=== PATIENT | female | born 1970 | race Caucasian/White ===

== ENCOUNTER 2019-03-03 07:35 | Inpatient (IN) ==
[2019-03-03] MEDS ORDERED: Albuterol 2.5 MG/3 ML NEBULIZER IH STA (08:10)
[2019-03-03] MEDS ORDERED: Ringers Solution, Lactated 1,000 ML IVC SCH (08:15)
[2019-03-03] MEDS ORDERED: Gabapentin 300 MG CAPSULE PO ONE (08:28)
[2019-03-03] MEDS ORDERED: Scopolamine Patch 1.5 MG PATCH.TD72 TD ONE (08:28)
[2019-03-03] MEDS ORDERED: Acetaminophen IV 1,000 MG/100 ML INFUS..BTL IVPB ONE (08:28)
[2019-03-03] MEDS ORDERED: Celecoxib 200 MG CAPSULE PO ONE (08:28)
[2019-03-03] MEDS ORDERED: Morphine Sulfate 2 MG/ML SYRINGE IVP PRN (08:29)
[2019-03-03] MEDS ORDERED: *HR* OxyCODONE Immed Rel 5 MG TABLET PO PRN (08:29)
[2019-03-03] MEDS ORDERED: *HR* Succinylcholine 200 MG/10 ML VIAL IVP ONE ×2 (08:51→09:24)
[2019-03-03] MEDS ORDERED: Lidocaine -MPF 2% 2 ML VIAL ONE (08:51)
[2019-03-03] MEDS ORDERED: Lidocaine -MPF 4% 5 ML AMPUL ONE (08:51)
[2019-03-03] MEDS ORDERED: Dexamethasone 4 MG/ML VIAL ONE (08:51)
[2019-03-03] MEDS ORDERED: Ondansetron 4 MG/2 ML VIAL ONE (08:51)
[2019-03-03] MEDS ORDERED: *HR* Propofol 200 MG/20 ML VIAL IVP ONE (08:52)
[2019-03-03] MEDS ORDERED: *HR* Midazolam HCl 2 MG/2 ML VIAL ONE (08:52)
[2019-03-03] MEDS ORDERED: *HR* FentaNYL (PF) 100 MCG/2 ML VIAL ONE ×2 (08:52→14:03)
[2019-03-03] MEDS ORDERED: CeFAZolin Syr 3,000MG/30 ML 3,000 MG/30 ML SYRINGE IVPB ONE (09:01)
[2019-03-03] MEDS ORDERED: *HR* Rocuronium Bromide 50 MG/5 ML VIAL ONE ×2 (09:24→15:01)
[2019-03-03] MEDS ORDERED: Isovue-300 50ML VIAL ONE (09:27)
[2019-03-03] MEDS ORDERED: *HR* Midazolam HCl 5 MG/5 ML VIAL IVP ONE ×2 (10:32→11:50)
[2019-03-03 10:54] LABS: ABG Base Excess -11 mEq/L (-2 to 3); ABG Chloride 110 mEq/L (98-107); ABG Glucose 272 mg/dL (60-95); ABG HCO3 17 mEq/L (21-27); ABG Ionized Calcium 1.08 mmol/L (1.15-1.35); ABG Oxygen Saturation 96 % (95-98); ABG PCO2 47 mmHg (35-45); ABG PH 7.16 pH Units (7.32-7.45); ABG PO2 101 mmHg (85-104); ABG TCO2 18 mEq/L (20-26)
[2019-03-03] MEDS ORDERED: Heparin 1,000 UNITS/500 mL 500 ML ONE ×2 (11:27→15:08)
[2019-03-03 11:36] LABS: ABG Base Excess -7 mEq/L (-2 to 3); ABG Chloride 108 mEq/L (98-107); ABG Glucose 233 mg/dL (60-95); ABG HCO3 21 mEq/L (21-27); ABG Ionized Calcium 1.17 mmol/L (1.15-1.35); ABG Oxygen Saturation 99 % (95-98); ABG PCO2 51 mmHg (35-45); ABG PH 7.22 pH Units (7.32-7.45); ABG PO2 173 mmHg (85-104); ABG TCO2 23 mEq/L (20-26)
[2019-03-03] MEDS ORDERED: *HR* EPINEPHrine 1 MG/10 ML SYRINGE ONE (11:42)
[2019-03-03 12:55] LABS: ABG Base Excess -8 mEq/L (-2 to 3); ABG Chloride 109 mEq/L (98-107); ABG Glucose 257 mg/dL (60-95); ABG HCO3 21 mEq/L (21-27); ABG Ionized Calcium 1.37 mmol/L (1.15-1.35); ABG Oxygen Saturation 100 % (95-98); ABG PCO2 56 mmHg (35-45); ABG PH 7.17 pH Units (7.32-7.45); ABG PO2 210 mmHg (85-104); ABG TCO2 22 mEq/L (20-26)
[2019-03-03] MEDS ORDERED: *HR* PHENYLEPHRINE 1,000 MCG/10 ML SYRINGE IVP ONE (13:05)
[2019-03-03] MEDS ORDERED: 0.9 % Sodium Chloride 1,000 ML IVC SCH (13:15)
[2019-03-03] MEDS ORDERED: Artificial Tears SOLN 15 ML BOTTLE BOTH EYES PRN (13:36)
[2019-03-03] MEDS ORDERED: *HR* Norepinephrine 4 MG/4 ML VIAL IVC ONE (13:44)
[2019-03-03] MEDS ORDERED: 0.9 % Sodium Chloride 250 ML ONE (13:45)
[2019-03-03] MEDS ORDERED: *HR* Dextrose 50 % in Water (Syg) 50 ML SYRINGE IVP PRN (13:51)
[2019-03-03] MEDS ORDERED: D5% in Water 1,000 ML IVC PRN (13:51)
[2019-03-03] MEDS ORDERED: Dextrose Gel 15 GM/37.5 ML TUBE PO PRN ×2 (13:51)
[2019-03-03] MEDS ORDERED: *HR* FentaNYL (PF) 100 MCG/2 ML VIAL IVP ONE (14:21)
[2019-03-03 14:23] LABS: BUN/Creatinine Ratio 12 (6-26); Blood Urea Nitrogen 10 mg/dL (6-20); Calcium 8.4 mg/dL (8.6-10.3); Carbon Dioxide 22 mEq/L (23-29); Chloride 108 mEq/L (98-107); Glucose 283 mg/dL (70-105); Osmolality,Calculated 301 (280-300); Potassium 3.5 mEq/L (3.5-5.1); Sodium 141 mEq/L (136-145); eGFR For African Americans > 60 (> 60); eGFR For Non-African Americans > 60 (> 60)
[2019-03-03] MEDS ORDERED: Albumin Human 5% 25.0 GM/500 ML VIAL ONE (14:27)
[2019-03-03] MEDS ORDERED: Sodium Bicarbonate 50 MEQ/50 ML VIAL ONE ×2 (14:30→15:32)
[2019-03-03 14:32] LABS: ABG Base Excess -12 mEq/L (-2 to 3); ABG HCO3 17 mEq/L (21-27); ABG Oxygen Saturation 93 % (95-98); ABG PCO2 49 mmHg (35-45); ABG PH 7.15 pH Units (7.32-7.45); ABG PO2 86 mmHg (85-104); ABG TCO2 18 mEq/L (20-26); Blood Gas Modality ASSIST CONTROL; Blood Gas VT 450 cc
[2019-03-03] MEDS ORDERED: Sodium Bicarbonate 50 MEQ/50 ML VIAL IVP ONE ×2 (14:34→15:35)
[2019-03-03 14:43] LABS: INR 1.2; Prothrombin Time 13.3 Seconds (9.4-12.1)
[2019-03-03 14:52] LABS: Basophils # 0.1 K/mcL (0.0-0.2); Basophils % 0.3 %; Eosinophils % 0.1 %; Hematocrit 42.3 % (35.3-44.9); Immature Granulocytes % 1.9 % (0-4); Lymphocytes # 3.4 K/mcL (0.6-4.6); Lymphocytes % 10.6 %; Mean Corpuscular HGB Conc 33.1 g/dL (31.6-35.5); Mean Corpuscular Volume 87.8 fL (83.0-100.0); Mean Platelet Volume 10.4 fL (9.4-12.4); Monocytes # 1.5 K/mcL (0.0-1.3); Monocytes % 4.5 %; Neutrophils # 26.7 K/mcL (1.6-8.9); Platelet Count 300 K/mcL (140-400); Red Blood Count 4.82 M/mcL (3.82-4.97); Red Cell Distribution Width 15.1 % (11.5-14.5); Segmented Neutrophils % 82.6 %
[2019-03-03 14:55] LABS: White Blood Count 32.3 K/mcL (4.3-11.1)
[2019-03-03 15:02] LABS: Magnesium 1.7 mg/dL (1.6-2.6); Phosphorous 6.3 mg/dL (2.7-4.5)
[2019-03-03] MEDS ORDERED: Piperacillin/Tazobactam 3.375 GM in 0.9 % Sodium Chloride Mini Bag 100 ML IVPB SCH ×2 (15:04→18:00)
[2019-03-03 15:24] LABS: Estimated Average Glucose 134 mg/dl
[2019-03-03] MEDS: Vasopressin 40 UNIT in D5% in Water 100 ML IVC SCH (15:24)
[2019-03-03] MEDS: FentaNYL (PF) 1,000 MCG in 0.9 % Sodium Chloride 80 ML IVC SCH ×3 (15:55→23:33)
[2019-03-03 15:56] LABS: Hematocrit 34.7 % (35.3-44.9); Mean Corpuscular HGB Conc 34.3 g/dL (31.6-35.5); Mean Corpuscular Hemoglobin 29.3 pg (28.0-33.3); Mean Corpuscular Volume 85.5 fL (83.0-100.0); Mean Platelet Volume 10.2 fL (9.4-12.4); Platelet Count 242 K/mcL (140-400); Red Blood Count 4.06 M/mcL (3.82-4.97); Red Cell Distribution Width 14.9 % (11.5-14.5); White Blood Count 29.4 K/mcL (4.3-11.1)
[2019-03-03 15:57] LABS: Hemoglobin 11.9 g/dL (11.5-15.4)
[2019-03-03] MEDS: Norepinephrine 4 MG in 0.9 % Sodium Chloride 250 ML IVC SCH ×3 (15:58→22:11)
[2019-03-03 16:22] LABS: Lymphocytes # 0.6 K/mcL (0.6-4.6); Neutrophils # 28.8 K/mcL (1.6-8.9)
[2019-03-03 16:24] LABS: Platelet Estimate Normal (Normal)
[2019-03-03 16:36] LABS: ABG Base Excess -7 mEq/L (-2 to 3); ABG HCO3 20 mEq/L (21-27); ABG Oxygen Saturation 97 % (95-98); ABG PCO2 44 mmHg (35-45); ABG PH 7.27 pH Units (7.32-7.45); ABG PO2 108 mmHg (85-104); ABG TCO2 21 mEq/L (20-26); Blood Gas Modality ASSIST CONTROL; Blood Gas VT 480 cc
[2019-03-03] MEDS: Piperacillin/Tazobactam 3.375 GM in 0.9 % Sodium Chloride Mini Bag 100 ML IVPB SCH ×2 (17:43→23:31)
[2019-03-03] MEDS: Artificial Tears SOLN 15 ML BOTTLE BOTH EYES SCH ×3 (17:46→23:29)
[2019-03-03] MEDS: Insulin LISPRO 300 UNITS/3 ML VIAL SQ SCH ×3 (17:54→23:29)
[2019-03-03] MEDS ORDERED: ceFAZolin sodium 3,000 MG in 0.9 % Sodium Chloride 100 ML IVPB SCH (18:00)
[2019-03-03] MEDS ORDERED: *HR* Heparin 5,000 UNIT/ML VIAL SQ SCH (18:00)
[2019-03-03 18:25] LABS: ABG Base Excess -6 mEq/L (-2 to 3); ABG HCO3 20 mEq/L (21-27); ABG Oxygen Saturation 99 % (95-98); ABG PCO2 41 mmHg (35-45); ABG PO2 126 mmHg (85-104); ABG TCO2 21 mEq/L (20-26); Blood Gas Modality ASSIST CONTROL; Blood Gas VT 480 cc
[2019-03-03] MEDS ORDERED: Perflutren Lipid Microsphere 1.3 ML in 0.9 % Sodium Chloride 8.7 ML IVP ONE (21:18)
[2019-03-03] MEDS ORDERED: Perflutren Lipid Microsphere 2 ML VIAL ONE (21:20)
[2019-03-03 21:53] LABS: VBG Ionized Calcium 1.12 mmol/L (1.15-1.35)
[2019-03-03 21:56] LABS: Nucleated Red Blood Cells 0.1 /100 WBC (0)
[2019-03-03] MEDS: Chlorhexidine Rinse 15 ML MOUTHWASH MM SCH (21:56)
[2019-03-03 21:58] LABS: Hematocrit 34.5 % (35.3-44.9); Hemoglobin 11.8 g/dL (11.5-15.4); Mean Corpuscular HGB Conc 34.2 g/dL (31.6-35.5); Mean Corpuscular Volume 84.8 fL (83.0-100.0); Mean Platelet Volume 10.3 fL (9.4-12.4); Platelet Count 189 K/mcL (140-400); Red Blood Count 4.07 M/mcL (3.82-4.97); Red Cell Distribution Width 15.1 % (11.5-14.5)
[2019-03-03 22:11] LABS: Albumin 3.6 g/dL (3.5-5.7); Bilirubin,Direct 0.5 mg/dL (0.0-0.2); Bilirubin,Indirect 0.7 mg/dL (0.0-1.0); Bilirubin,Total 1.2 mg/dL (0.3-1.0); Calcium 8.5 mg/dL (8.6-10.3); Potassium 4.9 mEq/L (3.5-5.1)
[2019-03-03 22:33] LABS: Platelet Estimate Normal (Normal)
[2019-03-03 23:18] LABS: Globulin 1.8 g/dL (2.4-3.5); Total Protein 5.4 g/dL (6.4-8.9)
[2019-03-04 00:18] LABS: ABG Base Excess -3 mEq/L (-2 to 3); ABG HCO3 22 mEq/L (21-27); ABG Oxygen Saturation 97 % (95-98); ABG PCO2 38 mmHg (35-45); ABG PH 7.37 pH Units (7.32-7.45); ABG PO2 95 mmHg (85-104); ABG TCO2 23 mEq/L (20-26); Blood Gas Modality AF; Blood Gas VT 480 cc
[2019-03-04] MEDS ORDERED: 0.9 % Sodium Chloride 1,000 ML IVC ONE ×2 (01:30→04:34)
[2019-03-04 04:04] LABS: Basophils % 0.1 %; Hematocrit 33.2 % (35.3-44.9); Hemoglobin 11.2 g/dL (11.5-15.4); Immature Granulocytes % 0.8 % (0-4); Lymphocytes # 1.9 K/mcL (0.6-4.6); Lymphocytes % 10.4 %; Mean Corpuscular HGB Conc 33.7 g/dL (31.6-35.5); Mean Platelet Volume 10.8 fL (9.4-12.4); Monocytes # 1.6 K/mcL (0.0-1.3); Monocytes % 8.5 %; Platelet Count 166 K/mcL (140-400); Red Blood Count 3.86 M/mcL (3.82-4.97); Red Cell Distribution Width 15.6 % (11.5-14.5); Segmented Neutrophils % 80.2 %; White Blood Count 18.7 K/mcL (4.3-11.1)
[2019-03-04] MEDS: FentaNYL (PF) 1,000 MCG in 0.9 % Sodium Chloride 80 ML IVC SCH ×4 (04:07→23:07)
[2019-03-04 04:08] LABS: VBG Ionized Calcium 1.06 mmol/L (1.15-1.35)
[2019-03-04] MEDS: Norepinephrine 4 MG in 0.9 % Sodium Chloride 250 ML IVC SCH ×2 (04:08→14:48)
[2019-03-04 04:09] LABS: INR 1.2; Prothrombin Time 13.9 Seconds (9.4-12.1)
[2019-03-04] MEDS: Artificial Tears SOLN 15 ML BOTTLE BOTH EYES SCH ×5 (04:09→20:00)
[2019-03-04 04:22] LABS: Albumin 3.5 g/dL (3.5-5.7); Albumin/Globulin Ratio 1.8 (1.1-2.2); Bilirubin,Direct 0.3 mg/dL (0.0-0.2); Bilirubin,Indirect 0.6 mg/dL (0.0-1.0); Bilirubin,Total 0.9 mg/dL (0.3-1.0); Calcium 8.2 mg/dL (8.6-10.3); Globulin 1.9 g/dL (2.4-3.5); Potassium 5.2 mEq/L (3.5-5.1); Total Protein 5.4 g/dL (6.4-8.9)
[2019-03-04] MEDS ORDERED: Sodium Bicarbonate 50 MEQ/50 ML VIAL IVP ONE (04:35)
[2019-03-04] MEDS: Insulin LISPRO 300 UNITS/3 ML VIAL SQ SCH ×5 (04:49→20:00)
[2019-03-04 06:04] LABS: ABG Base Excess -3 mEq/L (-2 to 3); ABG HCO3 23 mEq/L (21-27); ABG Oxygen Saturation 95 % (95-98); ABG PCO2 44 mmHg (35-45); ABG PH 7.33 pH Units (7.32-7.45); ABG PO2 81 mmHg (85-104); ABG TCO2 24 mEq/L (20-26); Blood Gas Modality AF; Blood Gas VT 480 cc
[2019-03-04] MEDS: Chlorhexidine Rinse 15 ML MOUTHWASH MM SCH ×2 (07:11→20:00)
[2019-03-04] MEDS: Piperacillin/Tazobactam 3.375 GM in 0.9 % Sodium Chloride Mini Bag 100 ML IVPB SCH ×2 (07:12→15:11)
[2019-03-04] MEDS: Pantoprazole 40 MG VIAL IVP SCH (07:12)
[2019-03-04] MEDS: Calcium Gluconate 1gm/50mL 1 GM/50 ML BAG IVPB SCH ×2 (08:34→09:07)
[2019-03-04] MEDS: Dexmedetomidine HCl 400 MCG/100 ML MLS IVC SCH ×2 (08:45→23:09)
[2019-03-04] MEDS ORDERED: 0.9 % Sodium Chloride 500 ML ONE (08:57)
[2019-03-04 09:20] LABS: Basophils % 0.1 %; Hematocrit 31.1 % (35.3-44.9); Hemoglobin 10.7 g/dL (11.5-15.4); Immature Granulocytes % 0.6 % (0-4); Lymphocytes # 1.8 K/mcL (0.6-4.6); Lymphocytes % 10.8 %; Mean Corpuscular HGB Conc 34.4 g/dL (31.6-35.5); Mean Corpuscular Hemoglobin 29.5 pg (28.0-33.3); Mean Corpuscular Volume 85.7 fL (83.0-100.0); Mean Platelet Volume 11.1 fL (9.4-12.4); Monocytes # 1.6 K/mcL (0.0-1.3); Monocytes % 9.9 %; Neutrophils # 12.8 K/mcL (1.6-8.9); Nucleated Red Blood Cells 0.1 /100 WBC (0); Platelet Count 151 K/mcL (140-400); Red Blood Count 3.63 M/mcL (3.82-4.97); Red Cell Distribution Width 15.7 % (11.5-14.5); Segmented Neutrophils % 78.6 %; White Blood Count 16.3 K/mcL (4.3-11.1)
[2019-03-04 09:38] LABS: Albumin 3.6 g/dL (3.5-5.7); Albumin/Globulin Ratio 1.7 (1.1-2.2); Bilirubin,Direct 0.2 mg/dL (0.0-0.2); Bilirubin,Indirect 0.5 mg/dL (0.0-1.0); Bilirubin,Total 0.7 mg/dL (0.3-1.0); Calcium 8.4 mg/dL (8.6-10.3); Globulin 2.1 g/dL (2.4-3.5); Potassium 5.1 mEq/L (3.5-5.1); Total Protein 5.7 g/dL (6.4-8.9)
[2019-03-04] MEDS: Vasopressin 40 UNIT in D5% in Water 100 ML IVC SCH (11:49)
[2019-03-04 13:32] LABS: VBG Ionized Calcium 1.13 mmol/L (1.15-1.35)
[2019-03-04] MEDS: 0.9 % Sodium Chloride 1,000 ML IVC SCH ×2 (13:36→21:14)
[2019-03-04 13:45] LABS: Bilirubin,Urine Small (Negative); Blood,Urine Negative (Negative); Clarity,Urine Cloudy (Clear); Color,Urine Dark Yellow (Yellow); Glucose,Urine (UA) Normal (Normal); Ketones,Urine Trace mg/dL (Negative); Leukocyte Esterase,Urine Negative (Negative); Nitrite,Urine Negative (Negative); Protein,Urine 30 mg/dL (Neg-Trace); Specific Gravity,Urine > 1.030 (1.010-1.025); Urobilinogen,Urine Normal (Normal)
[2019-03-04 13:49] LABS: Bacteria,Urine None Seen per hpf (None-Few); Squamous Epithelial Cell,Urine Many per lpf (None-Few); WBC,Urine 15-30 per hpf (0-3)
[2019-03-04 13:57] LABS: Sodium, Urine 21.6 mEq/L
[2019-03-04 14:02] LABS: Uric Acid 7.5 mg/dL (2.3-7.6)
[2019-03-04 15:14] LABS: Basophils % 0.1 %; Hematocrit 29.3 % (35.3-44.9); Immature Granulocytes % 0.6 % (0-4); Lymphocytes # 1.7 K/mcL (0.6-4.6); Lymphocytes % 10.7 %; Mean Corpuscular HGB Conc 34.1 g/dL (31.6-35.5); Mean Corpuscular Hemoglobin 29.5 pg (28.0-33.3); Mean Corpuscular Volume 86.4 fL (83.0-100.0); Mean Platelet Volume 10.5 fL (9.4-12.4); Monocytes # 1.5 K/mcL (0.0-1.3); Monocytes % 9.7 %; Neutrophils # 12.6 K/mcL (1.6-8.9); Platelet Count 125 K/mcL (140-400); Red Blood Count 3.39 M/mcL (3.82-4.97); Red Cell Distribution Width 15.9 % (11.5-14.5); Segmented Neutrophils % 78.9 %; White Blood Count 15.9 K/mcL (4.3-11.1)
[2019-03-04 15:20] LABS: VBG Ionized Calcium 1.14 mmol/L (1.15-1.35)
[2019-03-04 15:32] LABS: Albumin 3.4 g/dL (3.5-5.7); Albumin/Globulin Ratio 1.6 (1.1-2.2); Bilirubin,Direct 0.1 mg/dL (0.0-0.2); Bilirubin,Indirect 0.5 mg/dL (0.0-1.0); Bilirubin,Total 0.6 mg/dL (0.3-1.0); Calcium 8.2 mg/dL (8.6-10.3); Globulin 2.1 g/dL (2.4-3.5); Potassium 4.8 mEq/L (3.5-5.1); Total Protein 5.5 g/dL (6.4-8.9)
[2019-03-04 17:51] LABS: ABG Base Excess 1 mEq/L (-2 to 3); ABG HCO3 27 mEq/L (21-27); ABG Oxygen Saturation 92 % (95-98); ABG PCO2 47 mmHg (35-45); ABG PH 7.37 pH Units (7.32-7.45); ABG PO2 66 mmHg (85-104); ABG TCO2 28 mEq/L (20-26); Blood Gas VT 480 cc
[2019-03-05] MEDS: Insulin LISPRO 300 UNITS/3 ML VIAL SQ SCH ×7 (00:39→23:29)
[2019-03-05] MEDS: Piperacillin/Tazobactam 3.375 GM in 0.9 % Sodium Chloride Mini Bag 100 ML IVPB SCH (00:40)
[2019-03-05] MEDS: Artificial Tears SOLN 15 ML BOTTLE BOTH EYES SCH ×4 (00:40→10:50)
[2019-03-05 03:34] LABS: Basophils % 0.1 %; Monocytes % 6.6 %
[2019-03-05 03:36] LABS: Hematocrit 26.3 % (35.3-44.9); Hemoglobin 8.9 g/dL (11.5-15.4); Immature Granulocytes % 0.8 % (0-4); Immature Platelets 6.4 % (1.1-6.1); Lymphocytes # 1.5 K/mcL (0.6-4.6); Lymphocytes % 10.8 %; Mean Corpuscular HGB Conc 33.8 g/dL (31.6-35.5); Mean Corpuscular Hemoglobin 29.8 pg (28.0-33.3); Mean Platelet Volume 10.9 fL (9.4-12.4); Monocytes # 0.9 K/mcL (0.0-1.3); Red Blood Count 2.99 M/mcL (3.82-4.97); Segmented Neutrophils % 81.7 %; White Blood Count 13.5 K/mcL (4.3-11.1)
[2019-03-05 03:39] LABS: INR 1.2; Platelet Count 96 K/mcL (140-400); Prothrombin Time 14.1 Seconds (9.4-12.1)
[2019-03-05 03:41] LABS: VBG Ionized Calcium 1.13 mmol/L (1.15-1.35)
[2019-03-05 03:54] LABS: Albumin 3.3 g/dL (3.5-5.7); Albumin/Globulin Ratio 1.5 (1.1-2.2); Bilirubin,Direct 0.1 mg/dL (0.0-0.2); Bilirubin,Indirect 0.4 mg/dL (0.0-1.0); Bilirubin,Total 0.5 mg/dL (0.3-1.0); Calcium 8.1 mg/dL (8.6-10.3); Globulin 2.2 g/dL (2.4-3.5); Potassium 4.5 mEq/L (3.5-5.1); Total Protein 5.5 g/dL (6.4-8.9)
[2019-03-05 04:36] LABS: ABG Base Excess 0 mEq/L (-2 to 3); ABG HCO3 26 mEq/L (21-27); ABG Oxygen Saturation 92 % (95-98); ABG PCO2 45 mmHg (35-45); ABG PH 7.37 pH Units (7.32-7.45); ABG PO2 65 mmHg (85-104); ABG TCO2 27 mEq/L (20-26); Blood Gas Modality AF; Blood Gas VT 480 cc
[2019-03-05] MEDS: 0.9 % Sodium Chloride 1,000 ML IVC SCH ×2 (05:08→12:09)
[2019-03-05] MEDS: Chlorhexidine Rinse 15 ML MOUTHWASH MM SCH ×2 (07:40→23:28)
[2019-03-05] MEDS: Pantoprazole 40 MG VIAL IVP SCH (07:40)
[2019-03-05 07:54] LABS: Phosphorous 3.3 mg/dL (2.7-4.5)
[2019-03-05] MEDS: Dexmedetomidine HCl 400 MCG/100 ML MLS IVC SCH (08:43)
[2019-03-05] MEDS: Vasopressin 40 UNIT in D5% in Water 100 ML IVC SCH (10:24)
[2019-03-05] MEDS ORDERED: Acetaminophen IV 1,000 MG/100 ML INFUS..BTL IVPB ONE (11:45)
[2019-03-05] MEDS ORDERED: Mag Hydrox/Al Hydrox/Simeth 30 ML UDC PO ONE (13:59)
[2019-03-05 16:02] LABS: Hematocrit 26.5 % (35.3-44.9); Hemoglobin 8.7 g/dL (11.5-15.4)
[2019-03-05] MEDS: *HR* HYDROmorphone 2 MG/ML SYRINGE IVP PRN (16:24)
[2019-03-05] MEDS ORDERED: Ondansetron 4 MG/2 ML VIAL ONE (16:59)
[2019-03-05] MEDS: Ondansetron 4 MG/2 ML VIAL IVP PRN (17:09)
[2019-03-06] MEDS: 0.9 % Sodium Chloride 1,000 ML IVC SCH ×3 (01:20→19:25)
[2019-03-06] MEDS: Insulin LISPRO 300 UNITS/3 ML VIAL SQ SCH ×3 (04:51→19:25)
[2019-03-06] MEDS: *HR* HYDROmorphone 2 MG/ML SYRINGE IVP PRN ×4 (04:58→21:19)
[2019-03-06] MEDS: Ondansetron 4 MG/2 ML VIAL IVP PRN (04:58)
[2019-03-06 05:04] LABS: Basophils # 0.1 K/mcL (0.0-0.2); Basophils % 0.3 %; Eosinophils # 0.1 K/mcL (0.0-0.6); Eosinophils % 0.9 %; Hematocrit 24.8 % (35.3-44.9); Hemoglobin 8.2 g/dL (11.5-15.4); Immature Granulocytes % 1.8 % (0-4); Lymphocytes # 1.8 K/mcL (0.6-4.6); Lymphocytes % 11.7 %; Mean Corpuscular HGB Conc 33.1 g/dL (31.6-35.5); Mean Corpuscular Volume 90.8 fL (83.0-100.0); Mean Platelet Volume 11.2 fL (9.4-12.4); Monocytes # 0.8 K/mcL (0.0-1.3); Monocytes % 5.2 %; Neutrophils # 12.6 K/mcL (1.6-8.9); Nucleated Red Blood Cells 0.6 /100 WBC (0); Platelet Count 108 K/mcL (140-400); Red Blood Count 2.73 M/mcL (3.82-4.97); Red Cell Distribution Width 16.2 % (11.5-14.5); Segmented Neutrophils % 80.1 %; White Blood Count 15.7 K/mcL (4.3-11.1)
[2019-03-06 05:10] LABS: INR 1.2; Prothrombin Time 13.9 Seconds (9.4-12.1)
[2019-03-06 05:22] LABS: Alanine Aminotransferase 31 Units/L (7-52); Albumin 3.7 g/dL (3.5-5.7); Albumin/Globulin Ratio 1.4 (1.1-2.2); Alkaline Phosphatase 41 Units/L (34-104); Aspartate Amino Transferase 32 Units/L (13-39); BUN/Creatinine Ratio 32 (6-26); Bilirubin,Total 0.5 mg/dL (0.3-1.0); Blood Urea Nitrogen 29 mg/dL (6-20); Calcium 8.4 mg/dL (8.6-10.3); Carbon Dioxide 25 mEq/L (23-29); Chloride 112 mEq/L (98-107); Globulin 2.6 g/dL (2.4-3.5); Glucose 115 mg/dL (70-105); Magnesium 2.2 mg/dL (1.6-2.6); Osmolality,Calculated 307 (280-300); Phosphorous 3.1 mg/dL (2.7-4.5); Potassium 4.2 mEq/L (3.5-5.1); Sodium 145 mEq/L (136-145); Total Protein 6.3 g/dL (6.4-8.9); eGFR For African Americans > 60 (> 60); eGFR For Non-African Americans > 60 (> 60)
[2019-03-06] MEDS: Chlorhexidine Rinse 15 ML MOUTHWASH MM SCH ×2 (08:09→20:14)
[2019-03-06] MEDS: Pantoprazole 40 MG VIAL IVP SCH (08:09)
[2019-03-07] MEDS: *HR* HYDROmorphone 2 MG/ML SYRINGE IVP PRN ×2 (01:00→04:40)
[2019-03-07 04:24] LABS: Basophils % 0.3 %; Eosinophils # 0.3 K/mcL (0.0-0.6); Eosinophils % 1.8 %; Hematocrit 23.1 % (35.3-44.9); Hemoglobin 7.2 g/dL (11.5-15.4); Immature Granulocytes % 2.9 % (0-4); Lymphocytes # 1.7 K/mcL (0.6-4.6); Lymphocytes % 11.9 %; Mean Corpuscular HGB Conc 31.2 g/dL (31.6-35.5); Mean Corpuscular Hemoglobin 29.3 pg (28.0-33.3); Mean Corpuscular Volume 93.9 fL (83.0-100.0); Mean Platelet Volume 10.6 fL (9.4-12.4); Monocytes # 0.9 K/mcL (0.0-1.3); Monocytes % 6.4 %; Neutrophils # 10.7 K/mcL (1.6-8.9); Nucleated Red Blood Cells 0.4 /100 WBC (0); Platelet Count 108 K/mcL (140-400); Red Blood Count 2.46 M/mcL (3.82-4.97); Red Cell Distribution Width 16.4 % (11.5-14.5); Segmented Neutrophils % 76.7 %; White Blood Count 13.9 K/mcL (4.3-11.1)
[2019-03-07 04:27] LABS: INR 1.2; Prothrombin Time 13.5 Seconds (9.4-12.1)
[2019-03-07 04:42] LABS: BUN/Creatinine Ratio 24 (6-26); Blood Urea Nitrogen 17 mg/dL (6-20); Calcium 8.2 mg/dL (8.6-10.3); Carbon Dioxide 25 mEq/L (23-29); Chloride 107 mEq/L (98-107); Glucose 105 mg/dL (70-105); Osmolality,Calculated 292 (280-300); Potassium 3.7 mEq/L (3.5-5.1); Sodium 140 mEq/L (136-145); eGFR For African Americans > 60 (> 60); eGFR For Non-African Americans > 60 (> 60)
[2019-03-07] MEDS ORDERED: *HR* Heparin 5,000 UNIT/ML VIAL SQ SCH ×2 (08:18→18:00)
[2019-03-07 08:36] LABS: Hematocrit 22.7 % (35.3-44.9); Hemoglobin 7.4 g/dL (11.5-15.4)
[2019-03-07] MEDS: Chlorhexidine Rinse 15 ML MOUTHWASH MM SCH (08:36)
[2019-03-07] MEDS: Pantoprazole 40 MG VIAL IVP SCH (08:36)
[2019-03-07 10:52] LABS: Bilirubin,Urine Negative (Negative); Blood,Urine Large (Negative); Clarity,Urine Cloudy (Clear); Glucose,Urine (UA) Normal (Normal); Ketones,Urine Trace mg/dL (Negative); Leukocyte Esterase,Urine Small (Negative); Nitrite,Urine Negative (Negative); PH,Urine 5.5 pH Units (5.0-8.0); Protein,Urine 30 mg/dL (Neg-Trace); Specific Gravity,Urine 1.025 (1.010-1.025); Urobilinogen,Urine Normal (Normal)
[2019-03-07 10:54] LABS: Bacteria,Urine None Seen per hpf (None-Few); Hyaline Casts,Urine None Seen per lpf (None-Few); RBC,Urine TNTC per hpf (0-3); Squamous Epithelial Cell,Urine Many per lpf (None-Few); WBC,Urine 15-30 per hpf (0-3)
[2019-03-07 11:06] LABS: Color,Urine Dark Yellow (Yellow)
[2019-03-07 15:01] LABS: Hematocrit 23.5 % (35.3-44.9); Hemoglobin 7.7 g/dL (11.5-15.4)
[2019-03-07] MEDS ORDERED: *HR* FentaNYL (PF) 100 MCG/2 ML VIAL IVP ONE (18:29)
[2019-03-07] MEDS ORDERED: *HR* FentaNYL (PF) 100 MCG/2 ML VIAL ONE (18:30)
[2019-03-07] MEDS: Ondansetron 4 MG/2 ML VIAL IVP PRN (18:33)
[2019-03-07 20:43] LABS: Hematocrit 23.8 % (35.3-44.9); Hemoglobin 7.9 g/dL (11.5-15.4)
[2019-03-07] MEDS ORDERED: Ondansetron 4 MG/2 ML VIAL IVP ONE (20:54)
[2019-03-07] MEDS: *HR* Promethazine 25 MG/ML VIAL IVP PRN (23:23)
[2019-03-08] MEDS: *HR* Promethazine 25 MG/ML VIAL IVP PRN ×5 (03:39→23:52)
[2019-03-08 04:00] LABS: Basophils # 0.1 K/mcL (0.0-0.2); Basophils % 0.3 %; Eosinophils # 0.2 K/mcL (0.0-0.6); Eosinophils % 1.1 %; Hematocrit 24.1 % (35.3-44.9); Hemoglobin 7.8 g/dL (11.5-15.4); Immature Granulocytes % 4.1 % (0-4); Lymphocytes # 1.2 K/mcL (0.6-4.6); Lymphocytes % 8.2 %; Mean Corpuscular HGB Conc 32.4 g/dL (31.6-35.5); Mean Corpuscular Volume 89.6 fL (83.0-100.0); Mean Platelet Volume 10.3 fL (9.4-12.4); Monocytes # 0.9 K/mcL (0.0-1.3); Monocytes % 6.2 %; Neutrophils # 11.9 K/mcL (1.6-8.9); Nucleated Red Blood Cells 0.4 /100 WBC (0); Platelet Count 143 K/mcL (140-400); Red Blood Count 2.69 M/mcL (3.82-4.97); Red Cell Distribution Width 16.3 % (11.5-14.5); Segmented Neutrophils % 80.1 %; White Blood Count 14.9 K/mcL (4.3-11.1)
[2019-03-08 04:17] LABS: Albumin 3.4 g/dL (3.5-5.7); Albumin/Globulin Ratio 1.5 (1.1-2.2); Bilirubin,Direct 0.3 mg/dL (0.0-0.2); Bilirubin,Indirect 0.5 mg/dL (0.0-1.0); Bilirubin,Total 0.8 mg/dL (0.3-1.0); Globulin 2.3 g/dL (2.4-3.5); Total Protein 5.7 g/dL (6.4-8.9)
[2019-03-08 04:19] LABS: BUN/Creatinine Ratio 21 (6-26); Blood Urea Nitrogen 12 mg/dL (6-20); Calcium 8.3 mg/dL (8.6-10.3); Carbon Dioxide 22 mEq/L (23-29); Chloride 106 mEq/L (98-107); Glucose 116 mg/dL (70-105); Osmolality,Calculated 289 (280-300); Potassium 3.6 mEq/L (3.5-5.1); Sodium 139 mEq/L (136-145); eGFR For African Americans > 60 (> 60); eGFR For Non-African Americans > 60 (> 60)
[2019-03-08] MEDS: Ondansetron 4 MG/2 ML VIAL IVP PRN ×3 (05:06→21:34)
[2019-03-08] MEDS: Pantoprazole 40 MG VIAL IVP SCH (09:25)
[2019-03-08] MEDS ORDERED: *HR* Heparin 5,000 UNIT/ML VIAL IVP PRN (11:58)
[2019-03-08] MEDS: Heparin 25,000 UNIT/250 ML D5W 25,000 UNIT/250 ML IV.SOLN IVC SCH (13:42)
[2019-03-08 13:46] LABS: Hematocrit 23.5 % (35.3-44.9); Hemoglobin 7.4 g/dL (11.5-15.4); Mean Corpuscular HGB Conc 31.5 g/dL (31.6-35.5); Mean Corpuscular Volume 92.2 fL (83.0-100.0); Mean Platelet Volume 10.1 fL (9.4-12.4); Platelet Count 146 K/mcL (140-400); Red Blood Count 2.55 M/mcL (3.82-4.97); Red Cell Distribution Width 16.2 % (11.5-14.5); White Blood Count 15.5 K/mcL (4.3-11.1)
[2019-03-08 13:49] LABS: INR 1.2; Prothrombin Time 13.3 Seconds (9.4-12.1)
[2019-03-08] MEDS: 0.9 % Sodium Chloride 1,000 ML IVC SCH ×2 (14:23→21:51)
[2019-03-08] MEDS: Metoclopramide 10 MG/2 ML VIAL IVP SCH ×2 (16:06→23:00)
[2019-03-08] MEDS: Simethicone 80 MG TAB.CHEW PO PRN (17:48)
[2019-03-08 22:14] LABS: Hematocrit 23.9 % (35.3-44.9); Hemoglobin 7.9 g/dL (11.5-15.4)
[2019-03-09] MEDS ORDERED: Scopolamine Patch 1.5 MG PATCH.TD72 TD ONE (01:01)
[2019-03-09] MEDS ORDERED: *HR* LORazepam 2 MG/ML VIAL IVP ONE (01:04)
[2019-03-09] MEDS: Heparin 25,000 UNIT/250 ML D5W 25,000 UNIT/250 ML IV.SOLN IVC SCH ×2 (01:16→16:35)
[2019-03-09 02:38] LABS: Hematocrit 23.3 % (35.3-44.9); Hemoglobin 7.6 g/dL (11.5-15.4)
[2019-03-09] MEDS: *HR* Promethazine 25 MG/ML VIAL IVP PRN ×2 (03:58→08:05)
[2019-03-09] MEDS: Simethicone 80 MG TAB.CHEW PO PRN ×3 (03:58→21:50)
[2019-03-09 05:07] LABS: Basophils # 0.1 K/mcL (0.0-0.2); Basophils % 0.5 %; Eosinophils # 0.3 K/mcL (0.0-0.6); Eosinophils % 1.6 %; Hemoglobin 7.7 g/dL (11.5-15.4); Immature Granulocytes % 5.3 % (0-4); Lymphocytes # 1.5 K/mcL (0.6-4.6); Lymphocytes % 8.6 %; Mean Corpuscular HGB Conc 32.1 g/dL (31.6-35.5); Mean Corpuscular Hemoglobin 29.2 pg (28.0-33.3); Mean Corpuscular Volume 90.9 fL (83.0-100.0); Mean Platelet Volume 10.6 fL (9.4-12.4); Monocytes # 1.1 K/mcL (0.0-1.3); Monocytes % 6.3 %; Neutrophils # 13.4 K/mcL (1.6-8.9); Nucleated Red Blood Cells 0.5 /100 WBC (0); Platelet Count 187 K/mcL (140-400); Red Blood Count 2.64 M/mcL (3.82-4.97); Red Cell Distribution Width 16.3 % (11.5-14.5); Segmented Neutrophils % 77.7 %; White Blood Count 17.3 K/mcL (4.3-11.1)
[2019-03-09] MEDS ORDERED: Acetaminophen IV 1,000 MG/100 ML INFUS..BTL IVPB ONE (05:24)
[2019-03-09] MEDS: 0.9 % Sodium Chloride 1,000 ML IVC SCH ×2 (05:25→16:36)
[2019-03-09] MEDS: Metoclopramide 10 MG/2 ML VIAL IVP SCH ×3 (05:25→16:44)
[2019-03-09 05:26] LABS: BUN/Creatinine Ratio 18 (6-26); Blood Urea Nitrogen 11 mg/dL (6-20); Calcium 8.2 mg/dL (8.6-10.3); Carbon Dioxide 27 mEq/L (23-29); Chloride 106 mEq/L (98-107); Glucose 113 mg/dL (70-105); Osmolality,Calculated 292 (280-300); Potassium 3.4 mEq/L (3.5-5.1); Sodium 141 mEq/L (136-145); eGFR For African Americans > 60 (> 60); eGFR For Non-African Americans > 60 (> 60)
[2019-03-09 06:02] LABS: Reactive Lymphocytes Present (Not Present)
[2019-03-09 06:03] LABS: Platelet Estimate Normal (Normal)
[2019-03-09] MEDS: Ondansetron 4 MG/2 ML VIAL IVP PRN ×2 (06:45→21:50)
[2019-03-09] MEDS: Piperacillin/Tazobactam 3.375 GM in 0.9 % Sodium Chloride Mini Bag 100 ML IVPB SCH ×2 (08:04→16:36)
[2019-03-09] MEDS: Pantoprazole 40 MG VIAL IVP SCH (08:04)
[2019-03-09 08:22] LABS: Bilirubin,Urine Large (Negative); Blood,Urine Large (Negative); Clarity,Urine Turbid (Clear); Color,Urine Red (Yellow); Glucose,Urine (UA) Normal (Normal); Ketones,Urine 80 mg/dL (Negative); Leukocyte Esterase,Urine Small (Negative); Nitrite,Urine Positive (Negative); PH,Urine 5.5 pH Units (5.0-8.0); Protein,Urine 100 mg/dL (Neg-Trace); Specific Gravity,Urine 1.029 (1.010-1.025); Urobilinogen,Urine Normal (Normal)
[2019-03-09] MEDS ORDERED: Methylnaltrexone 12 MG/0.6 ML SYRINGE SQ ONE (09:09)
[2019-03-09 10:04] LABS: Magnesium 2.3 mg/dL (1.6-2.6); Phosphorous 3.5 mg/dL (2.7-4.5); Triglycerides 170 mg/dL (< 150)
[2019-03-09] MEDS ORDERED: Potassium Chloride 40 MEQ, Lidocaine 1% 2 ML in D5% in Water 500 ML IVPB ONE (10:19)
[2019-03-09] MEDS ORDERED: D10% in Water 500 ML IVC PRN (11:17)
[2019-03-09] MEDS: Aspirin Enteric Coated 81 MG Tablet PO SCH (12:42)
[2019-03-09] MEDS ORDERED: D5% in Water 1,000 ML IVC PRN (15:05)
[2019-03-09] MEDS ORDERED: Dextrose Gel 15 GM/37.5 ML TUBE PO PRN ×2 (15:05)
[2019-03-09] MEDS ORDERED: *HR* Dextrose 50 % in Water (Syg) 50 ML SYRINGE IVP PRN (15:05)
[2019-03-09] MEDS ORDERED: Lidocaine -MPF 1% 5 ML AMPUL INFILT ONE (15:21)
[2019-03-09] MEDS ORDERED: Clinimix E 5%-15% SOLUTION 2,000 ML with MVI, adult with vitamin K 10 ML IVC SCH (17:00)
[2019-03-09] MEDS: Insulin LISPRO 300 UNITS/3 ML VIAL SQ SCH ×2 (19:01→20:00)
[2019-03-10] MEDS: Metoclopramide 10 MG/2 ML VIAL IVP SCH ×4 (00:11→17:33)
[2019-03-10] MEDS ORDERED: SUMAtriptan 6 MG/0.5 ML SQ ONE (00:11)
[2019-03-10] MEDS: Piperacillin/Tazobactam 3.375 GM in 0.9 % Sodium Chloride Mini Bag 100 ML IVPB SCH ×3 (00:11→16:17)
[2019-03-10] MEDS: 0.9 % Sodium Chloride 1,000 ML IVC SCH ×3 (00:12→16:40)
[2019-03-10] MEDS: Insulin LISPRO 300 UNITS/3 ML VIAL SQ SCH ×6 (00:25→20:47)
[2019-03-10] MEDS: Heparin 25,000 UNIT/250 ML D5W 25,000 UNIT/250 ML IV.SOLN IVC SCH ×2 (03:00→16:21)
[2019-03-10] MEDS: Simethicone 80 MG TAB.CHEW PO PRN ×2 (03:48→12:09)
[2019-03-10] MEDS: *HR* Promethazine 25 MG/ML VIAL IVP PRN ×3 (03:49→15:11)
[2019-03-10 05:07] LABS: Hematocrit 22.5 % (35.3-44.9); Hemoglobin 7.4 g/dL (11.5-15.4); Mean Corpuscular HGB Conc 32.9 g/dL (31.6-35.5); Mean Corpuscular Hemoglobin 29.4 pg (28.0-33.3); Mean Corpuscular Volume 89.3 fL (83.0-100.0); Mean Platelet Volume 10.6 fL (9.4-12.4); Nucleated Red Blood Cells 0.5 /100 WBC (0); Platelet Count 219 K/mcL (140-400); Red Blood Count 2.52 M/mcL (3.82-4.97); Red Cell Distribution Width 15.9 % (11.5-14.5); White Blood Count 13.9 K/mcL (4.3-11.1)
[2019-03-10 05:25] LABS: Prealbumin 8.4 mg/dL (17.0-34.0)
[2019-03-10 05:26] LABS: BUN/Creatinine Ratio 17 (6-26); Blood Urea Nitrogen 11 mg/dL (6-20); Calcium 8.4 mg/dL (8.6-10.3); Carbon Dioxide 27 mEq/L (23-29); Chloride 106 mEq/L (98-107); Glucose 123 mg/dL (70-105); Magnesium 2.1 mg/dL (1.6-2.6); Osmolality,Calculated 291 (280-300); Phosphorous 2.9 mg/dL (2.7-4.5); Potassium 3.4 mEq/L (3.5-5.1); Sodium 140 mEq/L (136-145); eGFR For African Americans > 60 (> 60); eGFR For Non-African Americans > 60 (> 60)
[2019-03-10] MEDS: *HR* Heparin 5,000 UNIT/ML VIAL IVP PRN (05:27)
[2019-03-10 05:34] LABS: Lymphocytes # 1.1 K/mcL (0.6-4.6); Monocytes # 0.3 K/mcL (0.0-1.3); Neutrophils # 12.5 K/mcL (1.6-8.9); Platelet Estimate Normal (Normal)
[2019-03-10] MEDS ORDERED: Potassium Chloride 40 MEQ, Lidocaine 1% 2 ML in D5% in Water 500 ML IVPB ONE (07:34)
[2019-03-10] MEDS: Pantoprazole 40 MG VIAL IVP SCH (08:28)
[2019-03-10] MEDS: Aspirin Enteric Coated 81 MG Tablet PO SCH (08:28)
[2019-03-10] MEDS ORDERED: Isovue-370 500 ML BOTTLE IVP ONE ×2 (08:40→09:45)
[2019-03-10] MEDS: *HR* FentaNYL PATCH 25 MCG PATCH TD SCH (10:15)
[2019-03-10 14:32] LABS: Procalcitonin 0.41 ng/mL (0.00-0.15)
[2019-03-10] MEDS: Ondansetron 4 MG/2 ML VIAL IVP PRN (16:16)
[2019-03-10] MEDS ORDERED: Clinimix E 5%-15% SOLUTION 2,000 ML with MVI, adult with vitamin K 10 ML IVC SCH (17:00)
[2019-03-10] MEDS ORDERED: Acetaminophen IV 1,000 MG/100 ML INFUS..BTL IVPB ONE (19:48)
[2019-03-11] MEDS: Insulin LISPRO 300 UNITS/3 ML VIAL SQ SCH ×6 (00:37→20:38)
[2019-03-11] MEDS: 0.9 % Sodium Chloride 1,000 ML IVC SCH (01:03)
[2019-03-11] MEDS: Metoclopramide 10 MG/2 ML VIAL IVP SCH ×4 (01:04→16:29)
[2019-03-11] MEDS: Piperacillin/Tazobactam 3.375 GM in 0.9 % Sodium Chloride Mini Bag 100 ML IVPB SCH ×3 (01:04→16:29)
[2019-03-11] MEDS: Heparin 25,000 UNIT/250 ML D5W 25,000 UNIT/250 ML IV.SOLN IVC SCH ×4 (02:51→20:18)
[2019-03-11] MEDS: *HR* Promethazine 25 MG/ML VIAL IVP PRN ×2 (04:15→20:38)
[2019-03-11 06:30] LABS: Hematocrit 22.7 % (35.3-44.9); Hemoglobin 7.2 g/dL (11.5-15.4); Mean Corpuscular HGB Conc 31.7 g/dL (31.6-35.5); Mean Corpuscular Hemoglobin 28.5 pg (28.0-33.3); Mean Corpuscular Volume 89.7 fL (83.0-100.0); Mean Platelet Volume 10.3 fL (9.4-12.4); Nucleated Red Blood Cells 0.9 /100 WBC (0); Platelet Count 208 K/mcL (140-400); Red Blood Count 2.53 M/mcL (3.82-4.97); White Blood Count 7.9 K/mcL (4.3-11.1)
[2019-03-11 06:49] LABS: BUN/Creatinine Ratio 17 (6-26); Blood Urea Nitrogen 10 mg/dL (6-20); Carbon Dioxide 30 mEq/L (23-29); Chloride 104 mEq/L (98-107); Glucose 126 mg/dL (70-105); Osmolality,Calculated 289 (280-300); Potassium 3.4 mEq/L (3.5-5.1); Sodium 139 mEq/L (136-145); eGFR For African Americans > 60 (> 60); eGFR For Non-African Americans > 60 (> 60)
[2019-03-11 06:49] LABS: Phosphorous 3.5 mg/dL (2.7-4.5)
[2019-03-11 07:20] LABS: Eosinophils # 0.3 K/mcL (0.0-0.6); Hypochromasia Present (Not Present); Lymphocytes # 1.4 K/mcL (0.6-4.6); Neutrophils # 5.1 K/mcL (1.6-8.9); Platelet Estimate Normal (Normal); Polychromasia 1+ (Not Present)
[2019-03-11] MEDS ORDERED: Potassium Chloride 40 MEQ, Lidocaine 1% 2 ML in D5% in Water 500 ML IVPB ONE (07:26)
[2019-03-11] MEDS: Ondansetron 4 MG/2 ML VIAL IVP PRN (07:49)
[2019-03-11] MEDS: Pantoprazole 40 MG VIAL IVP SCH (07:49)
[2019-03-11] MEDS: Melatonin 3 MG TABLET PO PRN ×2 (07:58→20:39)
[2019-03-11] MEDS: Acetaminophen IV 1,000 MG/100 ML INFUS..BTL IVPB PRN ×2 (08:30→16:28)
[2019-03-11] MEDS: Aspirin Enteric Coated 81 MG Tablet PO SCH (10:55)
[2019-03-11] MEDS: Simethicone 80 MG TAB.CHEW PO PRN ×2 (16:29→20:39)
[2019-03-11] MEDS ORDERED: Clinimix E 5%-15% SOLUTION 2,000 ML with MVI, adult with vitamin K 10 ML IVC SCH (17:00)
[2019-03-11] MEDS: *HR* LORazepam 2 MG/ML VIAL IVP PRN (17:58)
[2019-03-12] MEDS: Insulin LISPRO 300 UNITS/3 ML VIAL SQ SCH ×6 (00:02→20:52)
[2019-03-12] MEDS: Piperacillin/Tazobactam 3.375 GM in 0.9 % Sodium Chloride Mini Bag 100 ML IVPB SCH ×3 (00:03→15:29)
[2019-03-12] MEDS: Metoclopramide 10 MG/2 ML VIAL IVP SCH ×4 (00:03→17:13)
[2019-03-12 01:21] LABS: Hematocrit 22.7 % (35.3-44.9); Hemoglobin 7.2 g/dL (11.5-15.4)
[2019-03-12] MEDS ORDERED: Chloraseptic Spray 177 ML BOTTLE MM PRN (03:05)
[2019-03-12] MEDS: *HR* LORazepam 2 MG/ML VIAL IVP PRN ×2 (04:20→20:52)
[2019-03-12 06:24] LABS: Hematocrit 22.8 % (35.3-44.9); Hemoglobin 7.2 g/dL (11.5-15.4); Mean Corpuscular HGB Conc 31.6 g/dL (31.6-35.5); Mean Corpuscular Hemoglobin 28.2 pg (28.0-33.3); Mean Corpuscular Volume 89.4 fL (83.0-100.0); Mean Platelet Volume 10.3 fL (9.4-12.4); Monocytes # 0.8 K/mcL (0.0-1.3); Nucleated Red Blood Cells 1.3 /100 WBC (0); Platelet Count 146 K/mcL (140-400); Red Blood Count 2.55 M/mcL (3.82-4.97); Red Cell Distribution Width 16.1 % (11.5-14.5); White Blood Count 7.8 K/mcL (4.3-11.1)
[2019-03-12 06:35] LABS: % Iron Saturation 6 % (15-50); BUN/Creatinine Ratio 21 (6-26); Blood Urea Nitrogen 12 mg/dL (6-20); Calcium 8.1 mg/dL (8.6-10.3); Carbon Dioxide 29 mEq/L (23-29); Chloride 101 mEq/L (98-107); Glucose 131 mg/dL (70-105); Iron 16 mcg/dL (50-170); Osmolality,Calculated 286 (280-300); Phosphorous 3.5 mg/dL (2.7-4.5); Potassium 3.3 mEq/L (3.5-5.1); Sodium 137 mEq/L (136-145); Transferrin 176 mg/dL (203-362); eGFR For African Americans > 60 (> 60); eGFR For Non-African Americans > 60 (> 60)
[2019-03-12 06:47] LABS: Eosinophils # 0.2 K/mcL (0.0-0.6); Neutrophils # 4.8 K/mcL (1.6-8.9); Platelet Estimate Normal (Normal)
[2019-03-12 06:48] LABS: Anisocytosis 1+ (Not Present); Polychromasia 1+ (Not Present); Reactive Lymphocytes Present (Not Present)
[2019-03-12] MEDS ORDERED: Potassium Chloride 40 MEQ, Lidocaine 1% 2 ML in D5% in Water 500 ML IVPB ONE (07:21)
[2019-03-12] MEDS: Aspirin Enteric Coated 81 MG Tablet PO SCH (07:49)
[2019-03-12] MEDS: Pantoprazole 40 MG VIAL IVP SCH ×2 (07:54→20:52)
[2019-03-12] MEDS ORDERED: Sodium Ferric Gluconat/Sucrose 125 MG in 0.9 % Sodium Chloride 100 ML IVPB ONE (09:00)
[2019-03-12] MEDS: Heparin 25,000 UNIT/250 ML D5W 25,000 UNIT/250 ML IV.SOLN IVC SCH (15:29)
[2019-03-12] MEDS: Acetaminophen IV 1,000 MG/100 ML INFUS..BTL IVPB PRN (15:30)
[2019-03-12] MEDS ORDERED: Clinimix E 5%-15% SOLUTION 2,000 ML with MVI, adult with vitamin K 10 ML IVC SCH (17:00)
[2019-03-13] MEDS: Heparin 25,000 UNIT/250 ML D5W 25,000 UNIT/250 ML IV.SOLN IVC SCH ×3 (01:13→17:50)
[2019-03-13] MEDS: Metoclopramide 10 MG/2 ML VIAL IVP SCH ×4 (01:14→17:26)
[2019-03-13] MEDS: Piperacillin/Tazobactam 3.375 GM in 0.9 % Sodium Chloride Mini Bag 100 ML IVPB SCH ×3 (01:14→15:57)
[2019-03-13] MEDS: Insulin LISPRO 300 UNITS/3 ML VIAL SQ SCH ×5 (01:14→16:05)
[2019-03-13 06:24] LABS: Hematocrit 21.3 % (35.3-44.9); Hemoglobin 6.8 g/dL (11.5-15.4); Mean Corpuscular HGB Conc 31.9 g/dL (31.6-35.5); Mean Corpuscular Hemoglobin 28.6 pg (28.0-33.3); Mean Corpuscular Volume 89.5 fL (83.0-100.0); Mean Platelet Volume 11.2 fL (9.4-12.4); Platelet Count 111 K/mcL (140-400); Red Blood Count 2.38 M/mcL (3.82-4.97); Red Cell Distribution Width 16.5 % (11.5-14.5); White Blood Count 9.8 K/mcL (4.3-11.1)
[2019-03-13 06:57] LABS: BUN/Creatinine Ratio 19 (6-26); Blood Urea Nitrogen 12 mg/dL (6-20); Calcium 8.1 mg/dL (8.6-10.3); Carbon Dioxide 27 mEq/L (23-29); Chloride 96 mEq/L (98-107); Glucose 490 mg/dL (70-105); Magnesium 2.1 mg/dL (1.6-2.6); Osmolality,Calculated 296 (280-300); Phosphorous 4.9 mg/dL (2.7-4.5); Potassium 4.3 mEq/L (3.5-5.1); Sodium 132 mEq/L (136-145); eGFR For African Americans > 60 (> 60); eGFR For Non-African Americans > 60 (> 60)
[2019-03-13] MEDS ORDERED: Furosemide 40 MG/4 ML VIAL IVP ONE (07:29)
[2019-03-13] MEDS ORDERED: Methylnaltrexone 12 MG/0.6 ML SYRINGE SQ ONE (09:15)
[2019-03-13] MEDS: Pantoprazole 40 MG VIAL IVP SCH ×2 (09:25→18:53)
[2019-03-13] MEDS: *HR* FentaNYL PATCH 25 MCG PATCH TD SCH (09:27)
[2019-03-13] MEDS: Sodium Ferric Gluconat/Sucrose 125 MG in 0.9 % Sodium Chloride 100 ML IVPB SCH (09:29)
[2019-03-13] MEDS: Aspirin Enteric Coated 81 MG Tablet PO SCH (09:29)
[2019-03-13] MEDS: *HR* LORazepam 2 MG/ML VIAL IVP PRN ×2 (09:58→21:21)
[2019-03-13] MEDS ORDERED: Clinimix E 5%-15% SOLUTION 2,000 ML with MVI, adult with vitamin K 10 ML IVC SCH (17:00)
[2019-03-13] MEDS: Acetaminophen IV 1,000 MG/100 ML INFUS..BTL IVPB PRN (17:26)
[2019-03-13] MEDS: *HR* Promethazine 25 MG/ML VIAL IVP PRN (18:52)
[2019-03-13 20:44] LABS: Troponin I < 0.03 ng/mL (< 0.04)
[2019-03-13 21:10] LABS: Hematocrit 20.1 % (35.3-44.9)
[2019-03-13 21:21] LABS: Alanine Aminotransferase 37 Units/L (7-52); Albumin 2.8 g/dL (3.5-5.7); Albumin/Globulin Ratio 1.4 (1.1-2.2); Alkaline Phosphatase 109 Units/L (34-104); Aspartate Amino Transferase 44 Units/L (13-39); BUN/Creatinine Ratio 21 (6-26); Bilirubin,Total 0.7 mg/dL (0.3-1.0); Blood Urea Nitrogen 11 mg/dL (6-20); Calcium 7.4 mg/dL (8.6-10.3); Carbon Dioxide 25 mEq/L (23-29); Chloride 97 mEq/L (98-107); Glucose 242 mg/dL (70-105); Magnesium 1.9 mg/dL (1.6-2.6); Osmolality,Calculated 281 (280-300); Potassium 3.6 mEq/L (3.5-5.1); Sodium 132 mEq/L (136-145); Total Protein 4.8 g/dL (6.4-8.9); eGFR For African Americans > 60 (> 60); eGFR For Non-African Americans > 60 (> 60)
[2019-03-14] MEDS: Insulin LISPRO 300 UNITS/3 ML VIAL SQ SCH ×7 (01:17→22:49)
[2019-03-14] MEDS: Metoclopramide 10 MG/2 ML VIAL IVP SCH ×5 (01:30→23:58)
[2019-03-14] MEDS: Piperacillin/Tazobactam 3.375 GM in 0.9 % Sodium Chloride Mini Bag 100 ML IVPB SCH ×4 (01:30→23:56)
[2019-03-14] MEDS: Heparin 25,000 UNIT/250 ML D5W 25,000 UNIT/250 ML IV.SOLN IVC SCH ×4 (03:57→23:37)
[2019-03-14 06:03] LABS: Hematocrit 20.5 % (35.3-44.9); Mean Corpuscular HGB Conc 30.2 g/dL (31.6-35.5); Mean Corpuscular Hemoglobin 28.4 pg (28.0-33.3); Red Blood Count 2.18 M/mcL (3.82-4.97); Red Cell Distribution Width 16.8 % (11.5-14.5)
[2019-03-14 06:05] LABS: Hemoglobin 6.2 g/dL (11.5-15.4); Immature Platelets 7.9 % (1.1-6.1); White Blood Count 14.7 K/mcL (4.3-11.1)
[2019-03-14 06:06] LABS: Platelet Count 94 K/mcL (140-400)
[2019-03-14 06:32] LABS: BUN/Creatinine Ratio 17 (6-26); Blood Urea Nitrogen 11 mg/dL (6-20); Calcium 8.2 mg/dL (8.6-10.3); Carbon Dioxide 28 mEq/L (23-29); Chloride 98 mEq/L (98-107); Glucose 289 mg/dL (70-105); Magnesium 2.1 mg/dL (1.6-2.6); Osmolality,Calculated 290 (280-300); Phosphorous 3.9 mg/dL (2.7-4.5); Potassium 3.7 mEq/L (3.5-5.1); Sodium 135 mEq/L (136-145); eGFR For African Americans > 60 (> 60); eGFR For Non-African Americans > 60 (> 60)
[2019-03-14] MEDS ORDERED: 0.9 % Sodium Chloride 250 ML ONE (07:02)
[2019-03-14] MEDS ORDERED: Furosemide 40 MG/4 ML VIAL IVP ONE (07:45)
[2019-03-14 07:51] LABS: Nucleated Red Blood Cells 1.4 /100 WBC (0)
[2019-03-14] MEDS ORDERED: Piperacillin/Tazobactam 3.375 GM VIAL ONE (07:58)
[2019-03-14] MEDS: Aspirin Enteric Coated 81 MG Tablet PO SCH (08:01)
[2019-03-14] MEDS: Pantoprazole 40 MG VIAL IVP SCH ×2 (08:01→18:26)
[2019-03-14] MEDS: Acetaminophen IV 1,000 MG/100 ML INFUS..BTL IVPB PRN ×2 (08:04→18:26)
[2019-03-14 08:12] LABS: Eosinophils # 0.9 K/mcL (0.0-0.6); Lymphocytes # 1.5 K/mcL (0.6-4.6); Monocytes # 1.5 K/mcL (0.0-1.3); Neutrophils # 10.3 K/mcL (1.6-8.9); Platelet Estimate Decreased (Normal)
[2019-03-14 08:13] LABS: Anisocytosis 1+ (Not Present); Hypochromasia Present (Not Present)
[2019-03-14 11:31] LABS: Hematocrit 24.8 % (35.3-44.9); Hemoglobin 7.7 g/dL (11.5-15.4)
[2019-03-14] MEDS ORDERED: Clinimix E 5%-15% SOLUTION 2,000 ML with MVI, adult with vitamin K 10 ML IVC SCH (17:00)
[2019-03-14 21:35] LABS: Hemoglobin 7.7 g/dL (11.5-15.4)
[2019-03-14] MEDS: *HR* LORazepam 2 MG/ML VIAL IVP PRN (23:58)
[2019-03-15] MEDS: Insulin LISPRO 300 UNITS/3 ML VIAL SQ SCH ×6 (01:18→20:46)
[2019-03-15 03:43] LABS: BUN/Creatinine Ratio 17 (6-26); Blood Urea Nitrogen 10 mg/dL (6-20); Calcium 8.3 mg/dL (8.6-10.3); Carbon Dioxide 29 mEq/L (23-29); Chloride 100 mEq/L (98-107); Glucose 119 mg/dL (70-105); Magnesium 2.1 mg/dL (1.6-2.6); Osmolality,Calculated 284 (280-300); Phosphorous 3.9 mg/dL (2.7-4.5); Potassium 3.3 mEq/L (3.5-5.1); Sodium 137 mEq/L (136-145); eGFR For African Americans > 60 (> 60); eGFR For Non-African Americans > 60 (> 60)
[2019-03-15] MEDS: Metoclopramide 10 MG/2 ML VIAL IVP SCH ×4 (05:51→23:12)
[2019-03-15] MEDS: Piperacillin/Tazobactam 3.375 GM in 0.9 % Sodium Chloride Mini Bag 100 ML IVPB SCH ×3 (08:12→23:08)
[2019-03-15] MEDS: Pantoprazole 40 MG VIAL IVP SCH ×2 (08:13→20:36)
[2019-03-15] MEDS: Aspirin Enteric Coated 81 MG Tablet PO SCH (08:13)
[2019-03-15 09:34] LABS: Basophils # 0.2 K/mcL (0.0-0.2); Basophils % 0.8 %; Eosinophils # 0.5 K/mcL (0.0-0.6); Eosinophils % 2.7 %; Hematocrit 23.7 % (35.3-44.9); Hemoglobin 7.7 g/dL (11.5-15.4); Immature Granulocytes % 16.1 % (0-4); Lymphocytes # 1.8 K/mcL (0.6-4.6); Lymphocytes % 9.3 %; Mean Corpuscular HGB Conc 32.5 g/dL (31.6-35.5); Mean Corpuscular Hemoglobin 28.9 pg (28.0-33.3); Mean Corpuscular Volume 89.1 fL (83.0-100.0); Mean Platelet Volume 11.4 fL (9.4-12.4); Monocytes # 1.3 K/mcL (0.0-1.3); Monocytes % 6.4 %; Neutrophils # 12.8 K/mcL (1.6-8.9); Nucleated Red Blood Cells 1.5 /100 WBC (0); Platelet Count 147 K/mcL (140-400); Red Blood Count 2.66 M/mcL (3.82-4.97); Red Cell Distribution Width 16.3 % (11.5-14.5); Segmented Neutrophils % 64.7 %; White Blood Count 19.7 K/mcL (4.3-11.1)
[2019-03-15] MEDS: Sodium Ferric Gluconat/Sucrose 125 MG in 0.9 % Sodium Chloride 100 ML IVPB SCH (10:53)
[2019-03-15] MEDS: Heparin 25,000 UNIT/250 ML D5W 25,000 UNIT/250 ML IV.SOLN IVC SCH ×2 (10:54→20:38)
[2019-03-15] MEDS: *HR* Heparin 5,000 UNIT/ML VIAL IVP PRN (10:56)
[2019-03-15 14:57] LABS: INR 1.2; Prothrombin Time 13.5 Seconds (9.4-12.1)
[2019-03-15] MEDS ORDERED: Clinimix E 5%-15% SOLUTION 2,000 ML with MVI, adult with vitamin K 10 ML IVC SCH (17:00)
[2019-03-15] MEDS ORDERED: Warfarin perPT PO PRN (18:00)
[2019-03-15] MEDS ORDERED: *HR* Warfarin 5 MG TABLET PO ONE (18:00)
[2019-03-15 23:08] LABS: Hematocrit 23.3 % (35.3-44.9); Hemoglobin 7.7 g/dL (11.5-15.4)
[2019-03-16] MEDS: Insulin LISPRO 300 UNITS/3 ML VIAL SQ SCH ×6 (00:06→20:30)
[2019-03-16 04:47] LABS: Hematocrit 23.6 % (35.3-44.9); Hemoglobin 7.4 g/dL (11.5-15.4); INR 1.2; Mean Corpuscular HGB Conc 31.4 g/dL (31.6-35.5); Mean Corpuscular Hemoglobin 28.2 pg (28.0-33.3); Mean Corpuscular Volume 90.1 fL (83.0-100.0); Mean Platelet Volume 11.4 fL (9.4-12.4); Nucleated Red Blood Cells 1.4 /100 WBC (0); Platelet Count 167 K/mcL (140-400); Prothrombin Time 13.8 Seconds (9.4-12.1); Red Blood Count 2.62 M/mcL (3.82-4.97); Red Cell Distribution Width 16.7 % (11.5-14.5); White Blood Count 18.1 K/mcL (4.3-11.1)
[2019-03-16 04:59] LABS: BUN/Creatinine Ratio 17 (6-26); Blood Urea Nitrogen 11 mg/dL (6-20); Calcium 8.6 mg/dL (8.6-10.3); Carbon Dioxide 28 mEq/L (23-29); Chloride 101 mEq/L (98-107); Glucose 116 mg/dL (70-105); Magnesium 2.1 mg/dL (1.6-2.6); Osmolality,Calculated 284 (280-300); Phosphorous 4.6 mg/dL (2.7-4.5); Potassium 3.8 mEq/L (3.5-5.1); Sodium 137 mEq/L (136-145); eGFR For African Americans > 60 (> 60); eGFR For Non-African Americans > 60 (> 60)
[2019-03-16 05:24] LABS: Eosinophils # 0.4 K/mcL (0.0-0.6); Lymphocytes # 5.1 K/mcL (0.6-4.6); Monocytes # 1.8 K/mcL (0.0-1.3); Neutrophils # 10.9 K/mcL (1.6-8.9); Platelet Estimate Normal (Normal)
[2019-03-16 05:25] LABS: Reactive Lymphocytes Present (Not Present)
[2019-03-16] MEDS: Heparin 25,000 UNIT/250 ML D5W 25,000 UNIT/250 ML IV.SOLN IVC SCH ×3 (05:31→21:33)
[2019-03-16] MEDS: Metoclopramide 10 MG/2 ML VIAL IVP SCH ×4 (05:31→23:34)
[2019-03-16] MEDS: Aspirin Enteric Coated 81 MG Tablet PO SCH (09:50)
[2019-03-16] MEDS: *HR* FentaNYL PATCH 25 MCG PATCH TD SCH (09:50)
[2019-03-16] MEDS: Pantoprazole 40 MG VIAL IVP SCH ×2 (09:51→20:30)
[2019-03-16] MEDS: Piperacillin/Tazobactam 3.375 GM in 0.9 % Sodium Chloride Mini Bag 100 ML IVPB SCH ×3 (09:51→23:34)
[2019-03-16] MEDS: Clinimix E 5%-15% SOLUTION 2,000 ML with MVI, adult with vitamin K 10 ML, Trace Eleme... IVC SCH (16:31)
[2019-03-16 16:58] LABS: Hematocrit 24.1 % (35.3-44.9); Hemoglobin 7.6 g/dL (11.5-15.4)
[2019-03-16] MEDS ORDERED: Clinimix E 5%-15% SOLUTION 2,000 ML with MVI, adult with vitamin K 10 ML, Trace Eleme... IVC SCH (17:00)
[2019-03-16] MEDS ORDERED: *HR* Warfarin 5 MG TABLET PO ONE (18:00)
[2019-03-17] MEDS: Insulin LISPRO 300 UNITS/3 ML VIAL SQ SCH ×7 (02:44→23:58)
[2019-03-17 04:19] LABS: Hematocrit 23.6 % (35.3-44.9); Hemoglobin 7.4 g/dL (11.5-15.4); Mean Corpuscular HGB Conc 31.4 g/dL (31.6-35.5); Mean Corpuscular Hemoglobin 28.4 pg (28.0-33.3); Mean Corpuscular Volume 90.4 fL (83.0-100.0); Mean Platelet Volume 10.9 fL (9.4-12.4); Nucleated Red Blood Cells 1.4 /100 WBC (0); Platelet Count 192 K/mcL (140-400); Red Blood Count 2.61 M/mcL (3.82-4.97); Red Cell Distribution Width 16.7 % (11.5-14.5); White Blood Count 20.7 K/mcL (4.3-11.1)
[2019-03-17 04:31] LABS: INR 1.2; Prothrombin Time 13.6 Seconds (9.4-12.1)
[2019-03-17 04:38] LABS: BUN/Creatinine Ratio 18 (6-26); Blood Urea Nitrogen 13 mg/dL (6-20); Calcium 8.6 mg/dL (8.6-10.3); Carbon Dioxide 27 mEq/L (23-29); Chloride 99 mEq/L (98-107); Glucose 131 mg/dL (70-105); Magnesium 2.2 mg/dL (1.6-2.6); Osmolality,Calculated 282 (280-300); Potassium 4.1 mEq/L (3.5-5.1); Sodium 135 mEq/L (136-145); Triglycerides 185 mg/dL (< 150); eGFR For African Americans > 60 (> 60); eGFR For Non-African Americans > 60 (> 60)
[2019-03-17 04:41] LABS: Eosinophils # 0.4 K/mcL (0.0-0.6); Lymphocytes # 3.7 K/mcL (0.6-4.6); Monocytes # 0.8 K/mcL (0.0-1.3); Neutrophils # 15.3 K/mcL (1.6-8.9)
[2019-03-17] MEDS: Metoclopramide 10 MG/2 ML VIAL IVP SCH ×4 (05:45→23:10)
[2019-03-17] MEDS: Heparin 25,000 UNIT/250 ML D5W 25,000 UNIT/250 ML IV.SOLN IVC SCH ×3 (05:54→23:07)
[2019-03-17] MEDS: Piperacillin/Tazobactam 3.375 GM in 0.9 % Sodium Chloride Mini Bag 100 ML IVPB SCH ×3 (08:18→23:08)
[2019-03-17] MEDS: Aspirin Enteric Coated 81 MG Tablet PO SCH (08:18)
[2019-03-17] MEDS: Pantoprazole 40 MG VIAL IVP SCH ×2 (08:18→18:35)
[2019-03-17] MEDS: Sodium Ferric Gluconat/Sucrose 125 MG in 0.9 % Sodium Chloride 100 ML IVPB SCH (08:32)
[2019-03-17] MEDS ORDERED: Isovue-370 500 ML BOTTLE IVP ONE (08:48)
[2019-03-17] MEDS ORDERED: ISOVUE-370 100 ML INFUS..BTL PO ONE (12:12)
[2019-03-17] MEDS: Clinimix E 5%-15% SOLUTION 2,000 ML with MVI, adult with vitamin K 10 ML, Trace Eleme... IVC SCH (17:13)
[2019-03-17] MEDS ORDERED: *HR* Warfarin 7.5 MG TABLET PO ONE (18:00)
[2019-03-17 18:18] LABS: Hematocrit 23.3 % (35.3-44.9); Hemoglobin 7.4 g/dL (11.5-15.4)
[2019-03-17 22:29] LABS: Bilirubin,Urine Negative (Negative); Blood,Urine Small (Negative); Clarity,Urine Clear (Clear); Color,Urine Yellow (Yellow); Glucose,Urine (UA) Normal (Normal); Ketones,Urine Negative (Negative); Leukocyte Esterase,Urine Negative (Negative); Nitrite,Urine Negative (Negative); PH,Urine 6.5 pH Units (5.0-8.0); Protein,Urine Negative (Neg-Trace); Specific Gravity,Urine 1.011 (1.010-1.025); Urobilinogen,Urine Normal (Normal)
[2019-03-17 22:31] LABS: Bacteria,Urine None Seen per hpf (None-Few); Hyaline Casts,Urine None Seen per lpf (None-Few); Squamous Epithelial Cell,Urine Many per lpf (None-Few); WBC,Urine 0-3 per hpf (0-3)
[2019-03-17] MEDS ORDERED: Piperacillin/Tazobactam 3.375 GM VIAL ONE (23:04)
[2019-03-18 03:32] LABS: Hematocrit 22.6 % (35.3-44.9); Hemoglobin 7.1 g/dL (11.5-15.4); Mean Corpuscular HGB Conc 31.4 g/dL (31.6-35.5); Mean Corpuscular Hemoglobin 28.3 pg (28.0-33.3); Mean Platelet Volume 10.9 fL (9.4-12.4); Nucleated Red Blood Cells 1.6 /100 WBC (0); Platelet Count 196 K/mcL (140-400); Red Blood Count 2.51 M/mcL (3.82-4.97); White Blood Count 16.3 K/mcL (4.3-11.1)
[2019-03-18 03:37] LABS: Heparin anti-factor XA UFH 0.46 IU/mL (0.30-0.70); INR 1.2; Prothrombin Time 14.1 Seconds (9.4-12.1)
[2019-03-18] MEDS: Insulin LISPRO 300 UNITS/3 ML VIAL SQ SCH ×3 (04:06→11:37)
[2019-03-18 04:53] LABS: Eosinophils # 0.7 K/mcL (0.0-0.6); Lymphocytes # 2.9 K/mcL (0.6-4.6); Monocytes # 1.6 K/mcL (0.0-1.3); Neutrophils # 11.1 K/mcL (1.6-8.9); Platelet Estimate Normal (Normal); Polychromasia 1+ (Not Present); Toxic Vacuolation Present (Not Present)
[2019-03-18] MEDS: Metoclopramide 10 MG/2 ML VIAL IVP SCH ×4 (05:30→23:28)
[2019-03-18 08:06] LABS: BUN/Creatinine Ratio 15 (6-26); Blood Urea Nitrogen 12 mg/dL (6-20); Calcium 8.9 mg/dL (8.6-10.3); Carbon Dioxide 29 mEq/L (23-29); Chloride 98 mEq/L (98-107); Glucose 114 mg/dL (70-105); Osmolality,Calculated 283 (280-300); Potassium 3.8 mEq/L (3.5-5.1); Sodium 136 mEq/L (136-145); eGFR For African Americans > 60 (> 60); eGFR For Non-African Americans > 60 (> 60)
[2019-03-18] MEDS: Heparin 25,000 UNIT/250 ML D5W 25,000 UNIT/250 ML IV.SOLN IVC SCH ×2 (08:15→16:55)
[2019-03-18] MEDS: Pantoprazole 40 MG VIAL IVP SCH ×2 (08:16→20:32)
[2019-03-18] MEDS: Aspirin Enteric Coated 81 MG Tablet PO SCH (08:16)
[2019-03-18] MEDS: Piperacillin/Tazobactam 3.375 GM in 0.9 % Sodium Chloride Mini Bag 100 ML IVPB SCH ×3 (08:33→23:28)
[2019-03-18 09:19] LABS: Hematocrit 24.2 % (35.3-44.9); Hemoglobin 7.3 g/dL (11.5-15.4)
[2019-03-18 15:05] LABS: Hemoglobin 7.9 g/dL (11.5-15.4)
[2019-03-18] MEDS ORDERED: *HR* Warfarin 7.5 MG TABLET PO ONE (18:00)
[2019-03-19] MEDS: Heparin 25,000 UNIT/250 ML D5W 25,000 UNIT/250 ML IV.SOLN IVC SCH ×2 (01:18→15:53)
[2019-03-19 03:59] LABS: Hematocrit 21.6 % (35.3-44.9); Hemoglobin 6.8 g/dL (11.5-15.4); Mean Corpuscular HGB Conc 31.5 g/dL (31.6-35.5); Mean Corpuscular Hemoglobin 28.7 pg (28.0-33.3); Mean Corpuscular Volume 91.1 fL (83.0-100.0); Mean Platelet Volume 10.6 fL (9.4-12.4); Monocytes # 0.8 K/mcL (0.0-1.3); Nucleated Red Blood Cells 1.3 /100 WBC (0); Platelet Count 200 K/mcL (140-400); Red Blood Count 2.37 M/mcL (3.82-4.97)
[2019-03-19 04:15] LABS: Prothrombin Time 79.2 Seconds (9.4-12.1)
[2019-03-19 04:26] LABS: Neutrophils # 9.6 K/mcL (1.6-8.9)
[2019-03-19 04:29] LABS: Anisocytosis 1+ (Not Present); Platelet Estimate Normal (Normal); Polychromasia 2+ (Not Present)
[2019-03-19] MEDS: Metoclopramide 10 MG/2 ML VIAL IVP SCH ×4 (05:21→23:39)
[2019-03-19 08:11] LABS: Prothrombin Time 15.2 Seconds (9.4-12.1)
[2019-03-19 08:12] LABS: INR 1.3
[2019-03-19] MEDS ORDERED: *HR* Heparin 5,000 UNIT/ML VIAL IVP PRN ×2 (08:17)
[2019-03-19] MEDS ORDERED: 0.9 % Sodium Chloride 250 ML ONE (10:13)
[2019-03-19] MEDS: *HR* FentaNYL PATCH 25 MCG PATCH TD SCH (10:33)
[2019-03-19] MEDS: Pantoprazole 40 MG VIAL IVP SCH ×2 (10:33→20:27)
[2019-03-19] MEDS: Piperacillin/Tazobactam 3.375 GM in 0.9 % Sodium Chloride Mini Bag 100 ML IVPB SCH ×3 (10:33→23:39)
[2019-03-19] MEDS: Aspirin Enteric Coated 81 MG Tablet PO SCH (10:45)
[2019-03-19 15:12] LABS: Hematocrit 25.1 % (35.3-44.9); Hemoglobin 8.1 g/dL (11.5-15.4)
[2019-03-19 15:22] LABS: INR 1.2; Prothrombin Time 13.2 Seconds (9.4-12.1)
[2019-03-19] MEDS ORDERED: *HR* Warfarin 7.5 MG TABLET PO ONE (18:00)
[2019-03-19] MEDS ORDERED: Warfarin perPT PO PRN (18:00)
[2019-03-19 22:05] LABS: Hematocrit 28.5 % (35.3-44.9); Hemoglobin 8.7 g/dL (11.5-15.4)
[2019-03-19 22:15] LABS: INR 1.3; Prothrombin Time 14.5 Seconds (9.4-12.1)
[2019-03-20] MEDS: Heparin 25,000 UNIT/250 ML D5W 25,000 UNIT/250 ML IV.SOLN IVC SCH (02:10)
[2019-03-20 04:54] LABS: Basophils # 0.1 K/mcL (0.0-0.2); Basophils % 0.9 %; Eosinophils # 0.5 K/mcL (0.0-0.6); Eosinophils % 4.6 %; Hematocrit 22.6 % (35.3-44.9); Immature Granulocytes % 9.8 % (0-4); Lymphocytes # 1.5 K/mcL (0.6-4.6); Lymphocytes % 13.6 %; Mean Corpuscular HGB Conc 30.1 g/dL (31.6-35.5); Mean Corpuscular Hemoglobin 28.1 pg (28.0-33.3); Mean Corpuscular Volume 93.4 fL (83.0-100.0); Monocytes # 0.7 K/mcL (0.0-1.3); Monocytes % 6.1 %; Nucleated Red Blood Cells 0.9 /100 WBC (0); Platelet Count 215 K/mcL (140-400); Red Blood Count 2.42 M/mcL (3.82-4.97); Red Cell Distribution Width 17.6 % (11.5-14.5); White Blood Count 11.3 K/mcL (4.3-11.1)
[2019-03-20] MEDS: Metoclopramide 10 MG/2 ML VIAL IVP SCH ×4 (05:00→23:07)
[2019-03-20 05:33] LABS: Hemoglobin 6.8 g/dL (11.5-15.4); Neutrophils # 7.4 K/mcL (1.6-8.9)
[2019-03-20 06:17] LABS: Polychromasia 1+ (Not Present)
[2019-03-20 06:18] LABS: Platelet Estimate Normal (Normal)
[2019-03-20 06:19] LABS: Heparin anti-factor XA UFH 0.24 IU/mL (0.30-0.70)
[2019-03-20 06:20] LABS: INR 1.3; Prothrombin Time 15.1 Seconds (9.4-12.1)
[2019-03-20] MEDS ORDERED: 0.9 % Sodium Chloride 500 ML ONE ×2 (09:15→14:37)
[2019-03-20] MEDS: Piperacillin/Tazobactam 3.375 GM in 0.9 % Sodium Chloride Mini Bag 100 ML IVPB SCH ×3 (09:31→23:07)
[2019-03-20] MEDS: Pantoprazole 40 MG VIAL IVP SCH ×2 (09:32→20:37)
[2019-03-20] MEDS: Sodium Ferric Gluconat/Sucrose 125 MG in 0.9 % Sodium Chloride 100 ML IVPB SCH (09:32)
[2019-03-20] MEDS: Aspirin Enteric Coated 81 MG Tablet PO SCH (09:33)
[2019-03-20] MEDS ORDERED: Iron Sucrose Complex 400 MG in 0.9 % Sodium Chloride 250 ML IVPB ONE (11:03)
[2019-03-20] MEDS ORDERED: *HR* Warfarin 5 MG TABLET PO ONE (18:00)
[2019-03-20 18:12] LABS: Activated Partial Thrombo Time 37.8 Seconds (26.0-36.0)
[2019-03-20 19:38] LABS: Hematocrit 28.5 % (35.3-44.9)
[2019-03-20 19:40] LABS: Hemoglobin 9.2 g/dL (11.5-15.4)
[2019-03-20 19:49] LABS: Folate > 22.3 ng/mL (3.0-16.0); Vitamin B12 393 pg/mL (250-1100)
[2019-03-20 21:42] LABS: Bilirubin,Urine Negative (Negative); Blood,Urine Negative (Negative); Clarity,Urine Cloudy (Clear); Color,Urine Yellow (Yellow); Glucose,Urine (UA) Normal (Normal); Ketones,Urine Negative (Negative); Leukocyte Esterase,Urine Moderate (Negative); Nitrite,Urine Negative (Negative); PH,Urine 6.5 pH Units (5.0-8.0); Protein,Urine Negative (Neg-Trace); Specific Gravity,Urine 1.012 (1.010-1.025); Urobilinogen,Urine Normal (Normal)
[2019-03-20 21:44] LABS: Bacteria,Urine None Seen per hpf (None-Few); Hyaline Casts,Urine None Seen per lpf (None-Few); Squamous Epithelial Cell,Urine Many per lpf (None-Few); WBC,Urine 0-3 per hpf (0-3)
[2019-03-20] MEDS ORDERED: *HR* Heparin 5,000 UNIT/ML VIAL IVP PRN ×2 (22:17)
[2019-03-20] MEDS ORDERED: Heparin 25,000 UNIT/250 ML D5W 25,000 UNIT/250 ML IV.SOLN IVC SCH (22:30)
[2019-03-20 23:05] LABS: Hematocrit 29.5 % (35.3-44.9); Hemoglobin 9.5 g/dL (11.5-15.4); Mean Corpuscular HGB Conc 32.2 g/dL (31.6-35.5); Mean Corpuscular Hemoglobin 28.4 pg (28.0-33.3); Mean Corpuscular Volume 88.1 fL (83.0-100.0); Mean Platelet Volume 9.5 fL (9.4-12.4); Platelet Count 255 K/mcL (140-400); Red Blood Count 3.35 M/mcL (3.82-4.97); Red Cell Distribution Width 16.4 % (11.5-14.5); White Blood Count 12.9 K/mcL (4.3-11.1)
[2019-03-20 23:13] LABS: INR 1.4; Prothrombin Time 15.4 Seconds (9.4-12.1)
[2019-03-21 04:17] LABS: INR 1.4; Prothrombin Time 15.9 Seconds (9.4-12.1)
[2019-03-21] MEDS ORDERED: *HR* Heparin 5,000 UNIT/ML VIAL IVP PRN (04:36)
[2019-03-21] MEDS: Metoclopramide 10 MG/2 ML VIAL IVP SCH ×4 (05:26→23:29)
[2019-03-21] MEDS: Pantoprazole 40 MG VIAL IVP SCH ×2 (09:40→20:56)
[2019-03-21] MEDS: Piperacillin/Tazobactam 3.375 GM in 0.9 % Sodium Chloride Mini Bag 100 ML IVPB SCH ×3 (09:42→23:29)
[2019-03-21] MEDS: Aspirin Enteric Coated 81 MG Tablet PO SCH (09:42)
[2019-03-21] MEDS: *HR* Rivaroxaban 15 MG TABLET PO SCH (20:57)
[2019-03-22 04:49] LABS: INR 2.4; Prothrombin Time 27.1 Seconds (9.4-12.1)
[2019-03-22] MEDS: Metoclopramide 10 MG/2 ML VIAL IVP SCH ×3 (05:37→18:00)
[2019-03-22] MEDS: Pantoprazole 40 MG VIAL IVP SCH ×2 (09:33→18:00)
[2019-03-22] MEDS: *HR* Rivaroxaban 15 MG TABLET PO SCH ×2 (09:34→20:07)
[2019-03-22] MEDS: Aspirin Enteric Coated 81 MG Tablet PO SCH (09:34)
[2019-03-22] MEDS: *HR* FentaNYL PATCH 25 MCG PATCH TD SCH (09:34)
[2019-03-22] MEDS: Sodium Ferric Gluconat/Sucrose 125 MG in 0.9 % Sodium Chloride 100 ML IVPB SCH (09:41)
[2019-03-22] MEDS ORDERED: Isovue-370 500 ML BOTTLE IVP ONE (15:43)
[2019-03-22] MEDS: Piperacillin/Tazobactam 3.375 GM in 0.9 % Sodium Chloride Mini Bag 100 ML IVPB SCH (16:18)
[2019-03-22 17:51] LABS: Basophils # 0.1 K/mcL (0.0-0.2); Basophils % 0.6 %; Eosinophils # 0.2 K/mcL (0.0-0.6); Eosinophils % 1.2 %; Hematocrit 23.8 % (35.3-44.9); Immature Granulocytes % 3.9 % (0-4); Lymphocytes # 1.2 K/mcL (0.6-4.6); Lymphocytes % 8.9 %; Mean Corpuscular HGB Conc 31.9 g/dL (31.6-35.5); Mean Corpuscular Hemoglobin 28.5 pg (28.0-33.3); Mean Corpuscular Volume 89.1 fL (83.0-100.0); Monocytes # 0.9 K/mcL (0.0-1.3); Monocytes % 7.1 %; Neutrophils # 10.4 K/mcL (1.6-8.9); Nucleated Red Blood Cells 0.2 /100 WBC (0); Platelet Count 247 K/mcL (140-400); Red Blood Count 2.67 M/mcL (3.82-4.97); Red Cell Distribution Width 16.7 % (11.5-14.5); Segmented Neutrophils % 78.3 %; White Blood Count 13.3 K/mcL (4.3-11.1)
[2019-03-22 17:59] LABS: Alanine Aminotransferase 24 Units/L (7-52); Albumin 3.3 g/dL (3.5-5.7); Albumin/Globulin Ratio 0.9 (1.1-2.2); Alkaline Phosphatase 114 Units/L (34-104); Aspartate Amino Transferase 21 Units/L (13-39); BUN/Creatinine Ratio 13 (6-26); Bilirubin,Total 0.6 mg/dL (0.3-1.0); Blood Urea Nitrogen 10 mg/dL (6-20); Calcium 8.6 mg/dL (8.6-10.3); Carbon Dioxide 27 mEq/L (23-29); Chloride 98 mEq/L (98-107); Globulin 3.6 g/dL (2.4-3.5); Glucose 105 mg/dL (70-105); Osmolality,Calculated 277 (280-300); Sodium 134 mEq/L (136-145); Total Protein 6.9 g/dL (6.4-8.9); eGFR For African Americans > 60 (> 60); eGFR For Non-African Americans > 60 (> 60)
[2019-03-22 18:01] LABS: Hemoglobin 7.6 g/dL (11.5-15.4)
[2019-03-23] MEDS: Metoclopramide 10 MG/2 ML VIAL IVP SCH ×2 (00:05→06:37)
[2019-03-23] MEDS: *HR* LORazepam 2 MG/ML VIAL IVP PRN (03:54)
[2019-03-23 03:55] LABS: Basophils # 0.1 K/mcL (0.0-0.2); Basophils % 0.7 %; Eosinophils # 0.3 K/mcL (0.0-0.6); Eosinophils % 2.3 %; Hematocrit 27.1 % (35.3-44.9); Hemoglobin 8.5 g/dL (11.5-15.4); Immature Granulocytes % 4.4 % (0-4); Lymphocytes # 0.9 K/mcL (0.6-4.6); Mean Corpuscular HGB Conc 31.4 g/dL (31.6-35.5); Mean Corpuscular Hemoglobin 27.9 pg (28.0-33.3); Mean Corpuscular Volume 88.9 fL (83.0-100.0); Mean Platelet Volume 9.6 fL (9.4-12.4); Monocytes # 0.8 K/mcL (0.0-1.3); Monocytes % 6.4 %; Neutrophils # 10.2 K/mcL (1.6-8.9); Nucleated Red Blood Cells 0.2 /100 WBC (0); Platelet Count 274 K/mcL (140-400); Red Blood Count 3.05 M/mcL (3.82-4.97); Red Cell Distribution Width 16.6 % (11.5-14.5); Segmented Neutrophils % 79.2 %; White Blood Count 12.9 K/mcL (4.3-11.1)
[2019-03-23] MEDS: Piperacillin/Tazobactam 3.375 GM in 0.9 % Sodium Chloride Mini Bag 100 ML IVPB SCH ×2 (04:02→08:18)
[2019-03-23 04:14] LABS: BUN/Creatinine Ratio 13 (6-26); Blood Urea Nitrogen 10 mg/dL (6-20); Calcium 8.7 mg/dL (8.6-10.3); Carbon Dioxide 29 mEq/L (23-29); Chloride 100 mEq/L (98-107); Glucose 108 mg/dL (70-105); Osmolality,Calculated 280 (280-300); Sodium 135 mEq/L (136-145); eGFR For African Americans > 60 (> 60); eGFR For Non-African Americans > 60 (> 60)
[2019-03-23] MEDS ORDERED: Aminoglycoside Consult 1 EACH MC ONE (07:26)
[2019-03-23] MEDS: Aspirin Enteric Coated 81 MG Tablet PO SCH (08:17)
[2019-03-23] MEDS: *HR* Rivaroxaban 15 MG TABLET PO SCH ×2 (08:18→19:47)
[2019-03-23] MEDS ORDERED: Ipratropium Neb 0.5 MG NEBULIZER IH PRN (11:13)
[2019-03-23] MEDS: levoFLOXacin 750 MG TABLET PO SCH (14:56)
[2019-03-23] MEDS: Levalbuterol Neb 0.63 MG/3 ML IH SCH ×3 (15:44→22:45)
[2019-03-24] MEDS: Levalbuterol Neb 0.63 MG/3 ML IH SCH ×2 (03:34→10:43)
[2019-03-24] MEDS: Sodium Ferric Gluconat/Sucrose 125 MG in 0.9 % Sodium Chloride 100 ML IVPB SCH (07:52)
[2019-03-24] MEDS: levoFLOXacin 750 MG TABLET PO SCH (08:13)
[2019-03-24] MEDS: Aspirin Enteric Coated 81 MG Tablet PO SCH (08:13)
[2019-03-24] MEDS: *HR* Rivaroxaban 15 MG TABLET PO SCH (08:14)
[2019-03-24 10:55] VITALS: BP 135/73
[2019-03-24] MEDS ORDERED: FLU Vac QV 19-20 (6Month+)/PF 0.5 ML SYRINGE IM ONE (13:25)
[2019-03-24 13:54] LABS: Basophils # 0.1 K/mcL (0.0-0.2); Basophils % 0.7 %; Eosinophils # 0.5 K/mcL (0.0-0.6); Hematocrit 30.9 % (35.3-44.9); Immature Granulocytes % 2.5 % (0-4); Lymphocytes # 0.8 K/mcL (0.6-4.6); Lymphocytes % 8.7 %; Mean Corpuscular HGB Conc 31.4 g/dL (31.6-35.5); Mean Corpuscular Hemoglobin 28.5 pg (28.0-33.3); Mean Corpuscular Volume 90.9 fL (83.0-100.0); Mean Platelet Volume 9.9 fL (9.4-12.4); Monocytes # 0.6 K/mcL (0.0-1.3); Neutrophils # 7.3 K/mcL (1.6-8.9); Nucleated Red Blood Cells 0.2 /100 WBC (0); Platelet Count 393 K/mcL (140-400); Red Cell Distribution Width 16.2 % (11.5-14.5); Segmented Neutrophils % 77.1 %; White Blood Count 9.5 K/mcL (4.3-11.1)
[2019-03-24 13:55] LABS: Hemoglobin 9.7 g/dL (11.5-15.4)
[2019-03-24 15:42] LABS: BUN/Creatinine Ratio 13 (6-26); Blood Urea Nitrogen 10 mg/dL (6-20); Carbon Dioxide 26 mEq/L (23-29); Chloride 101 mEq/L (98-107); Glucose 106 mg/dL (70-105); Osmolality,Calculated 285 (280-300); Potassium 4.1 mEq/L (3.5-5.1); Sodium 138 mEq/L (136-145); eGFR For African Americans > 60 (> 60); eGFR For Non-African Americans > 60 (> 60)
[2019-04-12] MEDS ORDERED: *HR* Rivaroxaban 10 MG TABLET PO SCH (17:00)
== END 2019-03-24 14:07 | DRG 907 ==
LOC: SAMDAY 07:35 → ICNU 12:40 → 2ANU 03-08 03:44 → 2NNU 03-10 15:07 → 2ANU 03-22 13:18
PROVIDERS: ADMIT Surgery; ATTEND Surgery